=== PATIENT | male | born 1980 | race Caucasian/White ===

== ENCOUNTER 2017-03-10 15:06 | Emergency (ER) | payer SELFPAY ==
[~2017-03-10] VITALS: Ht 152.4 cm; Wt 75.0 kg
[2017-03-10 15:08] VITALS: BP 120/81; PULSE 109; RESP 17; TEMP 98.1; O2SAT 99
== END 2017-03-10 16:16 | disposition left against medical advice (07) ==
LOC: NEPD 15:06
DX: Z00.8 Encounter for other general examination (principal); Z53.21 Procedure and treatment not carried out due to patient leaving prior to being seen by health care provider
CPT/HCPCS: 99281